=== PATIENT | male | born 1945 | race Caucasian/White ===

== ENCOUNTER 2018-07-24 10:04 | Outpatient (REF) | payer MEDICARE, SELFPAY ==
[2018-07-24 12:47] LABS: HCT 45.4 % (40.0-50.0); HGB 15.9 g/dL (13.5-17.5); Mean Corpuscular Hemoglobin 29.9 pg (27.0-33.0); Mean Corpuscular Volume 85.5 fL (80-95); Mean Platelet Volume 12.1 fL (8.0-11.0); Platelet Count 127 x1000/uL (130-400); RBC 5.31 m/cumm (4.50-6.00); RBC Distribution Width 14.1 % (11.8-14.1); White Blood Cell Count 10.43 k/cumm (4.4-10.8)
[2018-07-24 13:06] LABS: ALT 33 U/L (12-78); AST 26 U/L (15-37); Albumin 4.1 g/dL (3.4-5.0); Alkaline Phosphatase 142 U/L (46-116); Anion Gap 12.4 mmol/L (3-11); BUN 29 mg/dL (7-18); Bilirubin, Total 1.3 mg/dL (0.2-1.0); CO2 24.6 mmol/L (21.0-32.0); Calcium 8.8 mg/dL (8.5-10.1); Chloride 107 mmol/L (98-107); Cholesterol 126 mg/dL (50-200); Estimated GFR 59.35 (mL/min/1.73m2); Glucose 107 mg/dL (70-100); HDL Cholesterol 31 mg/dL (40-60); LDL CHOLESTEROL 69 mg/dL (<100); Sodium 144 mmol/L (136-145); Total Protein 6.8 g/dL (6.4-8.2); Triglyceride 196 mg/dL (30-150)
[2018-07-27 14:38] LABS: Testosterone, Free 2.01 ng/dL (3.28-12.2); Testosterone, Total 106 ng/dL (240-950)
== END 2018-07-24 10:24 ==
LOC: NCHCN 10:04
PROVIDERS: PCP Family Medicine; Visit Provider Family Medicine
DX: N52.9 Male erectile dysfunction, unspecified (principal); R53.83 Other fatigue; R60.0 Localized edema; I10 Essential (primary) hypertension; G89.29 Other chronic pain; R73.01 Impaired fasting glucose
CPT/HCPCS: 80053; 80061; 83721; 84402; 84403; 85027

== ENCOUNTER → 2018-08-15 10:54 | Outpatient (BNVA) | payer MEDICARE, SELFPAY | PROVIDERS: PCP Family Medicine; Visit Provider Orthopaedic Surgery | DX: M17.12 Unilateral primary osteoarthritis, left knee (principal) | CPT/HCPCS: 20610; 99211; 99213; J7325 ==

== ENCOUNTER → 2018-11-14 10:56 | Outpatient (BNVA) | payer OTHER, SELFPAY | PROVIDERS: PCP Family Medicine; Referring Provider Family Medicine; Visit Provider Orthopaedic Surgery | DX: M17.12 Unilateral primary osteoarthritis, left knee (principal) | CPT/HCPCS: 20610; 99211; 99213; J1040 ==

== ENCOUNTER → 2019-02-13 09:37 | Outpatient (BNVA) | payer OTHER, SELFPAY | PROVIDERS: PCP Family Medicine; Referring Provider Family Medicine; Visit Provider Orthopaedic Surgery | DX: M17.12 Unilateral primary osteoarthritis, left knee (principal); M25.511 Pain in right shoulder | CPT/HCPCS: 20610; 99211; 99212; J1040 ==

== ENCOUNTER → 2019-05-13 09:31 | Outpatient (BNVA) | payer OTHER, SELFPAY | PROVIDERS: PCP Family Medicine; Referring Provider Family Medicine; Visit Provider Orthopaedic Surgery | DX: M17.12 Unilateral primary osteoarthritis, left knee (principal) | CPT/HCPCS: 20610; 99211; 99213; J7325 ==

== ENCOUNTER 2019-08-12 10:00 | Outpatient (CLI) | payer OTHER, SELFPAY ==
--- NOTE | 2019-08-12 09:35 | DI.RAD_ITS ---
EXAM: XR KNEE LT 2V AP,LAT INDICATION: pain. COMPARISON: LEFT KNEE 3 VIEW COMPLETE from 01/30/2017 TECHNIQUE: 2D digital imaging was performed. FINDINGS: Two views were obtained. There is marked loss of the cartilaginous joint space of the medial tibiofe moral joint with subchondral sclerosis of the adjacent bones. Moderate marginal osteophyte formation noted involving the joints of the knee. No other significant bony abnormality seen. IMPRESSION: Severe DJD involving medial tibiofemoral joint.
--- NOTE | 2019-08-12 09:35 | DI.RAD_ITS ---
EXAM: XR SHOULDER LT COMPLETE 2+V INDICATION: pain. COMPARISON: No exams were available for comparison TECHNIQUE: 2D digital imaging was performed. FINDINGS: Two views were obtained. There appear to be tiny metallic fragments associated with the humeral head and region of the glenohumeral joint. Please correlate clinically. There are marked hypertrophic d egenerative changes of the acromioclavicular and glenohumeral joints. There is narrowing of the cart ilaginous joint space of the glenohumeral joint with apparent anterior subluxation of the humeral hea d. Prominent marginal osteophytes noted at the glenohumeral joint. Subchondral sclerosis of the hum eral head noted. IMPRESSION: Severe DJD of the glenohumeral joint. Hypertrophic degenerative changes of the AC joint noted as wel l.
== END 2019-08-12 10:20 ==
PROVIDERS: PCP Family Medicine; Referring Provider Family Medicine; Visit Provider Orthopaedic Surgery
DX: M25.562 Pain in left knee (principal); M17.12 Unilateral primary osteoarthritis, left knee; M25.512 Pain in left shoulder; M19.012 Primary osteoarthritis, left shoulder
CPT/HCPCS: 99201; 99213; 73030; 73560

== ENCOUNTER 2019-08-27 12:24 | Outpatient (REF) | payer OTHER, SELFPAY ==
[2019-08-27 19:27] LABS: HCT 45.7 % (40.0-50.0); HGB 16.2 g/dL (13.5-17.5); Mean Corp. HGB Concentration 35.4 g/dL (32.0-36.0); Mean Corpuscular Hemoglobin 29.9 pg (27.0-33.0); Mean Corpuscular Volume 84.3 fL (80-95); Mean Platelet Volume 11.9 fL (8.0-11.0); Platelet Count 137 x1000/uL (130-400); RBC 5.42 m/cumm (4.50-6.00); RBC Distribution Width 13.5 % (11.8-14.1); White Blood Cell Count 11.55 k/cumm (4.4-10.8)
[2019-08-27 20:25] LABS: ALT 31 U/L (16-63); AST 19 U/L (15-37); Albumin 4.2 g/dL (3.4-5.0); Alkaline Phosphatase 153 U/L (46-116); Anion Gap 10.1 mmol/L (3-11); BUN 26 mg/dL (7-18); Bilirubin, Total 1.1 mg/dL (0.2-1.0); CO2 27.9 mmol/L (21.0-32.0); CREATININE 1.24 mg/dL (0.70-1.30); Chloride 105 mmol/L (98-107); Estimated GFR 56.99 (mL/min/1.73m2); Ferritin 118 ng/mL (8-388); Folate 5.3 ng/mL (8.6-20.0); Glucose 114 mg/dL (70-100); Potassium 4.6 mmol/L (3.5-5.1); Sodium 143 mmol/L (136-145); TSH (W/Ref FT4) 2.86 uIU/mL (0.36-3.74); Total Protein 6.7 g/dL (6.4-8.2); Vitamin B12 1311 pg/mL (193-986)
== END 2019-08-27 12:44 ==
LOC: NCHCN 12:24
PROVIDERS: PCP Family Medicine; Visit Provider Family Medicine
DX: I10 Essential (primary) hypertension (principal)
CPT/HCPCS: 80053; 85027; 82607; 82728; 82746; 84443

== ENCOUNTER 2019-11-10 18:48 | Outpatient (REF) | payer OTHER, SELFPAY ==
[2019-11-10 18:53] LABS: Folate 18.3 ng/mL (8.6-20.0)
== END 2019-11-10 19:08 ==
LOC: NCHCN 18:48
PROVIDERS: PCP Family Medicine; Visit Provider Family Medicine
DX: E53.8 Deficiency of other specified B group vitamins (principal)
CPT/HCPCS: 82746

== ENCOUNTER 2020-07-29 11:31 | Outpatient (REF) | payer OTHER, SELFPAY ==
[2020-07-29 18:19] LABS: HCT 44.2 % (40.0-50.0); HGB 15.4 g/dL (13.5-17.5); MCH 29.8 pg (27.0-33.0); MCHC 34.8 % (32.0-36.0); MCV 85.7 fL (80-95); MPV 11.9 fL (8.0-11.0); Platelet Count 163 10^3/uL (130-400); RBC 5.16 10^6/uL (4.36-5.78); RDW 13.6 % (11.8-14.1); RDW-SD 42.6 fL; WBC 9.58 10^3/uL (4.4-10.8)
[2020-07-29 19:12] LABS: Hemoglobin A1C 5.7 % (<5.7)
[2020-07-29 19:20] LABS: ALT 33 U/L (16-63); AST 21 U/L (15-37); Albumin 4.3 g/dL (3.4-5.0); Alkaline Phosphatase 134 U/L (46-116); Anion Gap 8.9 mmol/L (3-11); BUN 21 mg/dL (7-18); Bilirubin, Total 1.6 mg/dL (0.2-1.0); CO2 26.1 mmol/L (21.0-32.0); CREATININE 0.98 mg/dL (0.70-1.30); Calcium 8.8 mg/dL (8.5-10.1); Calculated LDL 52 mg/dL (<100); Chloride 107 mmol/L (98-107); Cholesterol 113 mg/dL (<200); Folate 18.8 ng/mL (8.6-20.0); Glucose 118 mg/dL (74-106); HDL Cholesterol 30 mg/dL (40-60); Potassium 4.1 mmol/L (3.5-5.1); Sodium 142 mmol/L (136-145); Total Protein 6.7 g/dL (6.4-8.2); Triglyceride 155 mg/dL (<150)
== END 2020-07-29 11:51 ==
LOC: NCHCN 11:31
PROVIDERS: PCP Family Medicine; Visit Provider Family Medicine
DX: I10 Essential (primary) hypertension (principal); R73.03 Prediabetes; F17.200 Nicotine dependence, unspecified, uncomplicated; E53.8 Deficiency of other specified B group vitamins; M25.551 Pain in right hip; M25.552 Pain in left hip
CPT/HCPCS: 80053; 80061; 85027; 82746; 83036

== ENCOUNTER 2021-01-13 10:32 | Outpatient (REF) | payer OTHER, SELFPAY ==
[2021-01-13 16:20] LABS: ALT 35 U/L (16-63); AST 21 U/L (15-37); Albumin 4.1 g/dL (3.4-5.0); Alkaline Phosphatase 121 U/L (46-116); Anion Gap 9.7 mmol/L (3-11); BUN 29 mg/dL (7-18); Bilirubin, Total 1.6 mg/dL (0.2-1.0); CO2 24.3 mmol/L (21.0-32.0); Calcium 8.9 mg/dL (8.5-10.1); Chloride 108 mmol/L (98-107); Ferritin 104 ng/mL (26-388); Glucose 130 mg/dL (74-106); Sodium 142 mmol/L (136-145); Total Protein 6.6 g/dL (6.4-8.2)
[2021-01-13 21:50] LABS: PSA, Screening 7.6 ng/mL (0.0-6.5)
== END 2021-01-13 10:33 | disposition home or self-care (01) ==
LOC: NCHCN 10:32
PROVIDERS: PCP Family Medicine; Visit Provider Family Medicine
DX: R10.30 Lower abdominal pain, unspecified (principal); Z12.5 Encounter for screening for malignant neoplasm of prostate; R79.89 Other specified abnormal findings of blood chemistry
CPT/HCPCS: 80053; 84153; 85027; 82728

== ENCOUNTER 2021-09-30 10:27 | Outpatient (REF) | payer OTHER, SELFPAY ==
[2021-09-30 14:52] LABS: Anion Gap 10.5 mmol/L (3-11); BUN 32 mg/dL (7-18); CO2 24.5 mmol/L (21.0-32.0); CREATININE 1.2 mg/dL (0.70-1.30); Calcium 8.9 mg/dL (8.5-10.1); Chloride 107 mmol/L (98-107); Estimated GFR 58.86 (mL/min/1.73m2); Glucose 150 mg/dL (74-106); Sodium 142 mmol/L (136-145)
[2021-09-30 15:12] LABS: Hemoglobin A1C 6.1 % (<5.7)
== END 2021-09-30 10:28 | disposition home or self-care (01) ==
LOC: NCHCN 10:27
PROVIDERS: PCP Family Medicine; Visit Provider Family Medicine
DX: R73.03 Prediabetes (principal); I10 Essential (primary) hypertension; R06.09 Other forms of dyspnea
CPT/HCPCS: 80048; 83036

== ENCOUNTER 2022-08-24 16:28 | Outpatient (REF) | payer OTHER, SELFPAY ==
[2022-08-24 15:09] LABS: Anion Gap 6.8 mmol/L (3-11); BUN 17 mg/dL (7-18); CO2 26.2 mmol/L (21.0-32.0); CREATININE 1.4 mg/dL (0.70-1.30); Chloride 105 mmol/L (98-107); Estimated GFR 51.77 (mL/min/1.73m2); Glucose 133 mg/dL (74-106); Sodium 138 mmol/L (136-145)
[2022-08-24 15:13] LABS: Hemoglobin A1C 6.2 % (<5.7)
== END 2022-08-24 16:29 | disposition home or self-care (01) ==
LOC: NCHCN 16:28
PROVIDERS: PCP Family Medicine; Visit Provider Family Medicine
DX: R73.03 Prediabetes (principal); I10 Essential (primary) hypertension
CPT/HCPCS: 80048; 83036

== ENCOUNTER 2023-02-16 18:08 | Outpatient (REF) | payer MEDICARE, SELFPAY ==
[2023-02-16 18:16] LABS: Hemoglobin A1C 6.3 % (<5.7)
[2023-02-16 18:19] LABS: ALT 28 U/L (16-63); AST 18 U/L (15-37); Albumin 3.9 g/dL (3.4-5.0); Alkaline Phosphatase 127 U/L (46-116); Anion Gap 9.6 mmol/L (3-11); BUN 19 mg/dL (7-18); Bilirubin, Total 1.1 mg/dL (0.2-1.0); CO2 26.4 mmol/L (21.0-32.0); CREATININE 1.2 mg/dL (0.70-1.30); Calcium 8.9 mg/dL (8.5-10.1); Chloride 105 mmol/L (98-107); Glucose 179 mg/dL (74-106); Potassium 4.2 mmol/L (3.5-5.1); Sodium 141 mmol/L (136-145); Total Protein 7.2 g/dL (6.4-8.2)
== END 2023-02-16 18:09 | disposition home or self-care (01) ==
LOC: NCHCN 18:08
PROVIDERS: PCP Family Medicine; Visit Provider Family Medicine
DX: I10 Essential (primary) hypertension (principal); R73.03 Prediabetes
CPT/HCPCS: 80053; 83036

== ENCOUNTER 2023-09-12 15:51 | Outpatient (REF) | payer MEDICARE, SELFPAY ==
[2023-09-12 16:18] LABS: HCT 45.5 % (40.0-50.0); HGB 15.4 g/dL (13.5-17.5); MCH 29.3 pg (27.0-33.0); MCHC 33.8 % (32.0-36.0); MCV 87 fL (80-95); MPV 11.4 fL (8.0-11.0); Platelet Count 194 10^3/uL (130-400); RBC 5.26 10^6/uL (4.36-5.78); RDW 13.6 % (11.8-14.1); RDW-SD 43.2 fL
[2023-09-12 16:25] LABS: Anion Gap 9.5 mmol/L (3-11); BUN 17 mg/dL (7-18); CO2 30.5 mmol/L (21.0-32.0); CREATININE 1.2 mg/dL (0.70-1.30); Calcium 9.4 mg/dL (8.5-10.1); Chloride 103 mmol/L (98-107); Glucose 110 mg/dL (74-106); Potassium 3.4 mmol/L (3.5-5.1); Sodium 143 mmol/L (136-145)
== END 2023-09-12 15:52 | disposition home or self-care (01) ==
LOC: NCHCN 15:51
PROVIDERS: PCP Family Medicine; Visit Provider Family Medicine
DX: R19.5 Other fecal abnormalities (principal)
CPT/HCPCS: 80048; 85027

== ENCOUNTER 2024-09-24 17:55 | Outpatient (REF) | payer MEDICARE, SELFPAY ==
--- OUTSIDE RECORDS SUMMARY | 2024-09-24 18:50 | XMS_ITS | Continuity of Care Document ---
Author Organization [facility] Address [address] [place] [address] Care Team Providers Care Gender Studies Professor Name Role Phone Kylah Ramsay Primary Care Physician Encounter NCTY_ME Date(s): 10/02/23 - 10/02/23 [facility] [address] [place] [address] Discharge Disposition: Home or Self Care Attending Physician: Kylah Ramsay MD Admitting Physician: Kylah Ramsay MD Allergies, Adverse Reactions, Alerts No Known Medication Allergies Substance Reaction Severity Status hydroCHLOROthiazide Unknown Active Assessment and Plan Diagnostic Tests Pending * Clostridium Difficile 10/02/23 * Lactoferrin, Fecal by [facility] 10/02/23 * Fecal Bacterial Pathogens by PCR [facility] 10/02/23 * Generic Orderable [facility] 10/02/23 Medications acetaminophen-codeine 300 mg-30 mg oral tablet 56 EA, TAKE ONE TABLET BY MOUTH TWICE A DAY MAX DOSE OF 2 TABLETS DAILY, 0 Refill(s) Start Date: 03/12/23 Status: Ordered amLODIPine 2.5 mg oral tablet 90 tab, 0 Refill(s) Start Date: 03/12/23 Status: Ordered atenolol 100 mg oral tablet 90 tab, 0 Refill(s) Start Date: 03/12/23 Status: Ordered atenolol 50 mg oral tablet 90 tab, 0 Refill(s) Start Date: 03/12/23 Status: Ordered atorvastatin 40 mg oral tablet 90 tab, 0 Refill(s) Start Date: 03/12/23 Status: Ordered diphenoxylate-atropine 2.5 mg-0.025 mg oral tablet 80 tab, 0 Refill(s) Start Date: 03/12/23 Status: Ordered furosemide 40 mg oral tablet 90 tab, 0 Refill(s) Start Date: 03/12/23 Status: Ordered hydrOXYzine hydrochloride 25 mg oral tablet 90 tab, 0 Refill(s) Start Date: 03/12/23 Status: Ordered lisinopril 40 mg oral tablet 90 tab, 0 Refill(s) Start Date: 03/12/23 Status: Ordered omeprazole 40 mg oral delayed release capsule 90 cap, 0 Refill(s) Start Date: 03/12/23 Status: Ordered oxyCODONE 5 mg oral tablet 56 EA, TAKE 1 TO 2 BY MOUTH EVERY NIGHT MAX DOSE OF 2 TABLETS, 0 Refill(s) Start Date: 03/12/23 Status: Ordered Problem List Condition Confirmation Course Effective Dates Status H ealth Status Informant Chronic pain Confirmed 01/24/21 Active Colitis Confirmed 01/24/21 Active Diarrhea Confirmed 01/24/21 Active Dyspnea on exertion Confirmed 01/24/21 Active Edema of lower leg Confirmed 01/24/21 Active Erectile dysfunction Confirmed 01/24/21 Active Folic acid deficiency Confirmed 01/24/21 Active Hemangioma of liver Confirmed 01/24/21 Active Hip pain Confirmed 01/24/21 Active Hyperlipidemia Confirmed 01/24/21 Active Hypertensive disorder Confirmed 01/24/21 Active Low back pain Confirmed 01/24/21 Active Lower abdominal pain Confirmed 01/24/21 Active Mass of body structure Confirmed 01/24/21 Active Metabolic syndrome X Confirmed 01/24/21 Active Peptic ulcer Confirmed 01/24/21 Active Prediabetes Confirmed 01/24/21 Active Psoriasis Confirmed 01/24/21 Active Raised prostate specific antigen Confirmed 01/24/21 Active Shoulder pain Confirmed 01/24/21 Active Smoker Confirmed 01/24/21 Active Results Laboratory List Name Date Giardia/Crypto Ag 10/02/23 Most recent to oldest [Reference Range]: 1 Giardia Ag sent to [facility] *NA* (10/02/23 12:24 PM) Cryptospor Ag sent to [facility] *NA* (10/02/23 12:24 PM) Social History Social History Type Response Sex Male Patient Care team information Care Team Personnel Name: Kylah Ramsay MD Position: No Access Member Role: Primary Care Physician Address: Address: [address] [address]
--- OUTSIDE RECORDS SUMMARY | 2024-09-24 18:50 | XMS_ITS | Encounter Summary ---
Author Organization [facility] Address [address] [place] [address] Care Team Providers Care Abrasive Worker Name Role Phone Kylah Ramsay MD Primary Care Provider [phone] Encounter Details Date Type Department Care Team (Late st Contact Info) Description 10/02/2023 Lab Requisition [facility] Pathology & Laboratory Medicine - [facility] [address], [place] [id number] Outr Resulting Lab, Provider Social History Tobacco Use Types Packs/Day Years Used Date Smoking Tobacco: Never Assessed Sex and Gender Information Value Date Recorded Sex Assigned at Not on file Legal Sex Male 18:02 EST Gender Identity Not on file Sexual Orientation Not on file documented as of this encounter Plan of Treatment Not on file documented as of this encounter Procedures Procedure Name Priority Date/Time Associated Diagnosis Comments FECAL BACTERIAL PATHOGENS BY PCR Routine 10/02/2023 12:24 EST documented in this encounter Results * FECAL BACTERIAL PATHOGENS BY PCR (10/02/2023 12:24 EST) Salmonella PCR Negative Negative 10/03/2023 12:14 EST [facility] Shigella/Enteroin vasive E. coli Negative Negative 10/03/2023 12:14 EST [facility] HN LAB CAMPYLOBACTER PCR Negative Negative 10/03/2023 12:14 EST [facility] Shiga Toxin PCR Negative Negative 12:14 EST [facility] Feces SPECIMEN FROM RECTUM / Unknown 10/02/2023 12:24 EST 10/02/2023 22:58 EST us Provider Outr Resulting Lab MICROBIOLOGY - GENER AL ORDERABLES Final Result [facility] [address] [place] [address] documented in this encounter Visit Diagnoses Not on filedocumented in this encounter Care Teams Abrasive Worker Relationship Specialty Start Date End Date Kylah Ramsay MD [address] [place] [phone] PCP - General 06/06/11 documented as of this encounter
--- OUTSIDE RECORDS SUMMARY | 2024-09-24 18:50 | XMS_ITS | Clinical Summary ---
Author Organization [facility] Address [facility] [place] [address] Care Team Providers Care Replenishment Analyst Name Role Phone Kylah Ramsay MD Primary Care Provider [phone] Allergies No known active allergies Medications Medication Sig Dispensed Refills Start Date End Date Status amoxicillin (AMOXIL) 500 mg Capsule Take 500 mg by mouth 3 times daily. Active diaZEPam (VALIUM) 5 mg Tablet Take 5 mg by mouth daily. Active OXYcodone-Aspirin 4.8355-325 mg Tablet Take 1 tablet by mouth nightly. Active LORazepam (ATIVAN) 1 mg Tablet Take 1 mg by mouth as needed for Anxiety. Active acetaminophen-codeine (TYLENOL-CODEINE #3) 300-30 mg Tablet Take 1 tablet by mouth every 6 hours as needed for Pain. Active diphenoxylate-atropine (LOMOTIL) 2.5-0.025 mg Tablet Take 1 tablet by mouth 4 times daily as needed for Diarrhea. Active hydrOXYzine (ATARAX) 25 mg Tablet Take 25 mg by mouth daily. Active omeprazole (PRILOSEC) 20 mg Capsule, Delayed Release(E.C.) Take 20 mg by mouth daily. Active atenolol (TENORMIN) 100 mg Tablet Take 100 mg by mouth daily. Active lisinopril (PRINIVIL;ZESTRIL) 40 mg Tablet Take 40 mg by mouth daily. Active atorvastatin (LIPITOR) 10 mg Tablet Take 10 mg by mouth daily. Active busPIRone (BUSPAR) 15 mg Tablet Take 15 mg by mouth 2 times daily. Active GLUC SCHWAB/CHONDRO SCHWAB A/VIT C/MN (GLUCOSAMINE 1500 COMPLEX ORAL) Take 1,500 mg by mouth daily. Active fish oil-omega-3 fatty acids 1,000 mg Capsule Take 1 g by mouth daily. Active cyanocobalamin 500 mcg Tablet Take 500 mcg by mouth daily. Active Potassium Gluconate 595 mg (99 mg) Tablet Take by mouth. Active Ascorbic Acid 500 mg Tablet, Chewable Take by mouth. Acti ve astaxanthin 4 mg Capsule Take by mouth daily. Active Arginine, L-Arginine, 500 mg Capsule Take by mouth daily. Active LS-2-TVT-EPA-Fish Oil-Vit D3 (FISH OIL-VIT D3) 300-1,000-1,000 mg-mg-unit Capsule Take 2,000 Units by mouth. Active Inositol 500 mg Tablet Take by mouth. Active pyridoxine (B-6) 100 mg Tablet Take 100 mg by mouth daily. Active Zinc Acetate, Oral, 50 mg (zinc) Capsule Take by mouth. Act mila Active Problems Problem Noted Date Diagnosed Date Retinal detachment 05/14/2015 Family History Medical History Relation Comments Diabetes Neg Hx Glaucoma Neg Hx Macular Degeneration Neg Hx Social History Tobacco Use Types Packs/Day Years Used Date Smoking Tobacco: Every Day Alcohol Use Standard Drinks/Week Comments No 0 (1 standard drink = 0.6 oz pur e alcohol) Sex and Gender Information Value Date Recorded Sex Assigned at Not on file Gender Identity Not on file Sexual Orientation Not on file Plan of Treatment Health Maintenance Due Date Last Done Comments Hepatitis C Screening 1963 Tetanus/Diphtheria/Pertussis Vaccines (1 - Tdap) 02/15 Zoster vaccine (1 of 2) 1995 Advance Directive 02/16/2000 Pneumoccocal Vaccine: 65+ (1 of 1 - PCV) 2010 RSV Vaccine (1 - 1-dose 75+ series) 02/16/2020 Covid-19 Vaccine (1 - season) 2024 Influenza (Flu) vaccine (1 o f 1 - Influenza standard series) 06/29/2024 Care Teams Replenishment Analyst Relationship Specialty Start Date End Date Kylah Ramsay MD [facility] FAYE RAMIREZ [address] [place], [place] [id number] PCP - General 09/20/10
--- OUTSIDE RECORDS SUMMARY | 2024-09-24 18:50 | XMS_ITS | Encounter Summary ---
Author Organization [facility] Address [address] [place] [address] Care Team Providers Care Glue Drier Operator Name Role Phone Kylah Ramsay MD Primary Care Provider [phone] Encounter Details Date Type Department Care Team (Late st Contact Info) Description 10/02/2023 Lab Requisition [facility] Pathology & Laboratory Medicine - [facility] [address] [place] [address] Outr Resulting Lab, Provider Social History Tobacco [...] Procedure Name Priority Date/Time Associated Diagnosis Comments GIARDIA AND CRYPTOSPORIDIUM ANTIGENS Routine 10/02/2023 12:24 EST documented in this encounter Results * GIARDIA AND CRYPTOSPORIDIUM ANTIGENS (10/02/2023 12:24 EST) Giardia and Cryptosporidium Cryptosporidium Antigen Neg and Giardia Antigen Neg Cryptosporidium Antigen Neg and Giardia Antigen Neg 14:40 EST [facility] Feces SPECIMEN FROM RECTUM / Unknown 10/02/2023 12:24 EST 10/02/2023 22:58 EST us Provider Outr Resulting Lab MICROBIOLOGY - GENER AL ORDERABLES Final Result [facility] [address] [place] [address] documented in this encounter Visit Diagnoses Not on filedocumented in this encounter Care Teams Glue Drier Operator Relationship Specialty Start Date End Date Kylah Ramsay MD [address] [place] [phone] PCP - General 06/06/11 documented as of this encounter
--- OUTSIDE RECORDS SUMMARY | 2024-09-24 18:50 | XMS_ITS | Clinical Summary ---
Author Organization [facility] Address [address] [place] [address] Care Team Providers Care Manager Film Name Role Phone Kylah Ramsay MD Primary Care Provider [phone] Social History Tobacco Use Types Packs/Day Years Used Date Smoking Tobacco: Never Assessed Sex and Gender Information Value Date Recorded Sex Assigned at Not on file Legal Sex Male 18:02 EST Gender Identity Not on file Sexual Orientation Not on file Plan of Treatment Health Maintenance Due Date Last Done Comments Hepatitis C Screen 1945 Fall Risk Screening 2010 RSV Immunization ( o r 60+ Years) (1 - 1-dose 75+ series) 02/16/2020 COVID-19 Vaccine ( season) 2024 Insurance [employer] MEDICARE Care Teams Manager Film Relationship Specialty Start Date End Date Kylah Ramsay MD [address] [place] [phone] PCP - General 06/06/11
--- OUTSIDE RECORDS SUMMARY | 2024-09-24 18:50 | XMS_ITS | Encounter Summary ---
Author Organization [facility] Address [address] [place] [address] Care Team Providers Care Field Technician Name Role Phone Kylah Ramsay MD Primary Care Provider [phone] Encounter Details Date Type Department Care Team (Late st Contact Info) Description 02/23/2021 Lab Requisition [facility] Pathology & Laboratory Medicine - [facility] [address] [place] [address] Rinku Martines MD [address] [place] [phone] Encounter for other general examination Social History Tobacco Use Types Packs/Day Years [...] Procedure Name Priority Date/Time Associated Diagnosis Comments SURGICAL PATHOLOGY Today 02/23/2021 13 :35 EDT documented in this encounter Results * SURGICAL PATHOLOGY (02/23/2021 13:35 EDT) Final Diagnosis A. DUODENUM, BIOPSY: - Erosive peptic duodenitis. See comment B. STOMACH, ANTRUM, BIOPSY: - Pyloric channel type mucosa showing reactive changes C. STOMACH, BODY, BIOPSY: - Gastric oxyntic mucosa showing proton pump inhibitor effects D. STOMACH, POLYP, BIOPSY: - Polypoid gastric oxyntic mucosa showing proton pump inhibitor effects E. ILEUM, TERMINAL ILEUM, BIOPSY: - Benign small bowel mucosa showing no pathologic abnormality F. COLON, RANDOM, BIOPSY: - Benign colonic mucosa showing no specific pathologic changes. See comment G. COLON, TRANSVERSE, POLYP, BIOPSY: - Tubular adenoma. See comment 03/03/2021 15:16 [facility] Diagnosis Comment Deeper sections have been examined on blocks A, F, and G. 03/03/2021 15:16 [facility] Attestation By the signature below, the attending physician certifies that they have 1) personally conducted a gross and/or microscopic examination of the described specimen(s), and/or personally interpreted the results of laboratory testing of the described specimen(s), and 2) personally rendered or confirmed the above diagnosis. 03/03/2021 15:16 [facility] at 1516 Clinical History Diarrhea with mixed constipation; Type 1 hiatal hernia, duodenitis, gastric polyp 03/03/2021 15:16 [facility] Gross Description A. Received in formalin labelled with proper patient identification (initials T, Z) and duodenum Bx are 3 fragments of bowen tissue; each measuring 0.3 x 0.3 x 0.2 cm. The specimens are submitted in A1. B. Received in formalin labelled with proper patient identification (initials T, Z) and antrum Bx is a single fragment of bowen tissue (0.3 x 0.3 x 0.3 cm). The specimen is submitted in B1. C. Received in formalin labelled with proper patient identification (initials T, Z) and gastric body Bx is a single fragment of bowen tissue (0.5 x 0.2 x 0.2 cm). The specimen is submitted in C1. D. Received in formalin labelled with proper patient identification (initials T, Z) and gastric polyp Bx are 2 fragments of bowen tissue; each measuring 0.2 x 0.2 x 0.2 cm. The specimens are submitted in D1. E. Received in formalin labelled with proper patient identification (initials T, Z) and terminal ileum Bx is a single fragment of bowen tissue (0.2 x 0.2 x 0.1 cm). The specimen is submitted in E1. F. Received in formalin labelled with proper patient identification (initials T, Z) and random colon Bx are multiple fragments of bowen tissue measuring 0.2 cm and 0.3 cm in greatest dimension. The specimens are submitted in F1. G. Received in formalin labelled with proper patient identification (initials T, Z) and transverse colon polyp is a single fragment of bowen tissue (0.5 x 0.3 x 0.2 cm). The specimen is submitted in G1. ROCIO CLAUDIO(ASCP) 02/24/2021 7:55 03/03/2021 15:16 EDT [facility] Performing Lab [facility] 03/03/2021 15:16 EDT [facility] Scanned Images 03/03/2021 15:16 EDT [facility] Tissue ENTIRE TRANSVERSE COLON / Unknown 02/23/2021 13:35 EDT 02/23/2021 22:45 EDT Tissue specimen (specimen) STOMACH STRUCTURE / Unknown 02/23/2021 13:35 EDT 02/23/2021 22:45 EDT Tissue specimen (specimen) STOMACH STRUCTURE / Unknown 02/23/2021 13:35 EDT 02/23/2021 22:45 EDT Tissue specimen (specimen) SPECIMEN FROM STOMACH OBTAINED BY TOTAL GASTRECTOMY / Unknown 02/23/2021 13:35 EDT 02/23/2021 22:45 EDT Tissue specimen (specimen) STRUCTURE OF SMALL INTESTINE / Unknown 02/23/2021 13:35 EDT 02/23/2021 22:45 EDT Tissue specimen (specimen) COLON STRUCTURE / Unknown 02/23/2021 13:35 EDT 02/23/2021 22:45 EDT Tissue specimen (specimen) TRANSVERSE COLON STRUCTURE / Unknown 02/23/2021 13:35 EDT 02/23/2021 22:45 EDT us Rinku Martines MD PATHOLOGY ORDERABLES F inal Result [facility] [address] [place] [address] documented in this encounter Visit Diagnoses Diagnosis Encounter for other general examination documented in this encounter Care Teams Field Technician Relationship Specialty Start Date End Date Kylah Ramsay MD [address] [place] [phone] PCP - General 06/06/11 documented as of this encounter
--- OUTSIDE RECORDS SUMMARY | 2024-09-24 18:50 | XMS_ITS | Encounter Summary ---
Author Organization [facility] Address [facility] [place] [address] Care Team Providers Care Laboratory Coordinator Name Role Phone Kylah Ramsay MD Primary Care Provider Reason for Visit * Reason Comments Eye Problem sent by Dr. Madrid for retinal eval-OS Encounter Details Date Type Department Care Team (Late st Contact Info) Description 05/14/2015 7:45 AM EDT Office [place] [phone] Rickie Vasques MD [facility] [place] [address] Retinal detachment, left Discharge Disposition: Home Social History Tobacco Use Types Packs/Day Years Used Date Smoking Tobacco: Every Day Alcohol Use Standard Drinks/Week Comments No 0 (1 standard drink = 0.6 oz pur e alcohol) Sex and Gender Information Value Date Recorded Sex Assigned at Not on file Gender Identity Not on file Sexual Orientation Not on file documented as of this encounter Progress Notes * Rickie Vasques MD - 05/14/2015 8:55 AM EDT Subclinical retinal detachment to 2-3 o'clock left eye. Localized retinal break was subretinal fluid and scant pigmentation. Laser today. 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 In summary, he is symptomatic with flashes and floaters in the left eye. A definite retinal break with subretinal fluid andscant pigmentation is seen at 2:30 o'clock. Given the symptoms as well as possible upcoming orbitalsurgery, we reviewed the risks and benefits. Laser treatment was recommended and was performed without difficulty. I've asked the patient to see you for continuity of care but to return immediately for any visual field loss if flashes or floaters or other changes documented in this encounter Plan of Treatment Not on file documented as of this encounter Visit Diagnoses Diagnosis Retinal detachment, left Unspecified retinal detachment documented in this encounter Care Teams Laboratory Coordinator Relationship Specialty Start Date End Date Kylah Ramsay MD [facility] [address] [place] [address] PCP - General 09/20/10 documented as of this encounter
--- OUTSIDE RECORDS SUMMARY | 2024-09-24 18:50 | XMS_ITS | Referral Summary ---
Author Organization [facility] Address [address] [place] [address] Care Team Providers Care [facility] Shift Lead Name Role Phone Kylah Ramsay MD Primary Care Provider Social History Tobacco Use Types Packs/Day Years Used Date Smoking Tobacco: Never Assessed Sex and Gender Information Value Date Recorded Sex Assigned at Not on file Legal Sex Male 18:02 EST Gender Identity Not on file Sexual Orientation Not on file Plan of Treatment Not on file Insurance [employer] MEDICARE Care Teams [facility] Shift Lead Relationship Specialty Start Date End Date Kylah Ramsay MD [address] [place] [phone] PCP - General 06/06/11
--- OUTSIDE RECORDS SUMMARY | 2024-09-24 18:50 | XMS_ITS | Encounter Summary ---
Author Organization [facility] Address [facility] [place] [address] Care Team Providers Care Regional Truck Driver Name Role Phone Kylah Ramsay MD Primary Care Provider [phone] Reason for Visit * Reason Onset Date Comments Eye Problem 05/17/2015 Gritty and burni ng feeling s/p laser treatment by Dr. Vasques on Sunday05/14/15 Encounter Details Date Type Department Care Team (Late st Contact Info) Description 05/17/2015 Telephone [place] [phone] Rickie Vasques MD [facility] [place] [address] Eye Problem (Gritty and burning feeling s/p laser treatment by Dr. Vasques on Sunday05/14/15) Social History Tobacco Use Types Packs/Day Years Used Date Smoking Tobacco: Every Day Alcohol Use Standard Drinks/Week Comments No 0 (1 standard drink = 0.6 oz pur e alcohol) Sex and Gender Information Value Date Recorded Sex Assigned at Not on file Gender Identity Not on file Sexual Orientation Not on file documented as of this encounter Miscellaneous Notes * Telephone Encounter - Anna Brown COT - 05/17/2015 9:38 AM EDT Patient already spoke to someone. All set. * Telephone Encounter - Anna Brown COT - 05/17/2015 8:54 AM EDT S/p Focal OS for retinal hole 05/14/15 documented in this encounter Plan of Treatment Not on file documented as of this encounter Visit Diagnoses Not on filedocumented in this encounter Care Teams Regional Truck Driver Relationship Specialty Start Date End Date Kylah Ramsay MD [facility] FAYE RAMIREZ [facility] [address] [place] [address] PCP - General 09/20/10 documented as of this encounter
--- OUTSIDE RECORDS SUMMARY | 2024-09-24 18:50 | XMS_ITS | Encounter Summary ---
Author Organization Formerly [facility], [facility] Address [facility] [place] [address] Care Team Providers Care Securities Clerk Name Role Phone Kylah Ramsay MD Primary Care Provider [phone] Reason for Visit * Reason Comments Procedure decision made in cli tam[place] today for focal laser OS for retinal hole Encounter Details Date Type Department Care Team (Late st Contact Info) Description 05/14/2015 10:45 AM EDT Procedure [place] [address] Rickie Vasques MD [facility] [address] [place] [address] Retinal hole of left eye Discharge Disposition: Home Social History Tobacco Use [...] Notes * Rickie Vasques MD - 05/14/2015 9:59 AM EDT Small subclinical detachment at 2 to 3:00 very well treated with laser completely surrounding the lesion and extending to the ora rosanna. No other lesions or high-risk pathology after careful repeatclinical examination at the time of laser Return to physicians at [place] Return immediately for any flashes floaters or visual field loss. Recommend dilated examination with indentation and indirect ophthalmoscopy with in 6 months for theright eye. Good view today but somewhat challenging in terms of fixation documented in this encounter Plan of Treatment Not on file documented as of this encounter Procedures Procedure Name Priority Date/Time Associated Diagnosis Comments DESTRUCTION LOC LESION RETINA-PHOTOCOAG:SUB SESSION - OS - LEFT EYE Routine 05/14/2015 9:59 AM EDT Retinal hole of left eye documented in this encounter Results * Laser Focal Retina Subsqu. Session - OS - Left Eye (05/14/2015 9:59 AM EDT) Anatomical Region Laterality Modality Other Narrative 05/14/2015 9:59 AM EDT Pre-Op Patient understands the risks and benefits of the treatment as outlined on the consent. Anesthesia Topical anesthesia was used. Laser Information The type of laser was argon. Color was green. The duration in seconds was 200.0. Laser power was 100.0. Total spots was 220. The spot size was 200 microns. Post-op The patient tolerated the procedure well. There were no complications. The patient received written and verbal post procedure care education. Notes Retinal tear treated to the ora rosanna and completely surrounded Rickie Vasques MD OPHTHALMOLOGY S ERVICES ORDERABLES documented in this encounter Visit Diagnoses Diagnosis Retinal hole of left eye documented in this encounter Care Teams Securities Clerk Relationship Specialty Start Date End Date Kylah Ramsay MD [address] [place] [address] PCP - General 09/20/10 documented as of this encounter
--- OUTSIDE RECORDS SUMMARY | 2024-09-24 18:51 | XMS_ITS | Encounter Summary ---
Author Organization [facility] Address [address] [place] [address] Care Team Providers Care Emergency Medicine Physician Name Role Phone Kylah Ramsay MD Primary Care Provider [phone] Encounter Details Date Type Department Care Team (Late st Contact Info) Description 01/13/2021 Lab Requisition [facility] Pathology & Laboratory Medicine - [facility] [address] [place], [place] [id number] Outr Resulting Lab, Provider Social History Tobacco [...] Procedure Name Priority Date/Time Associated Diagnosis Comments PSA TOTAL, DIAGNOSTIC Routine 01/13/2021 10:17 EDT documented in this encounter Results * (ABNORMAL) PSA TOTAL, DIAGNOSTIC (01/13/2021 10:17 EDT) PSA 7.6(H) 0.0 - 6.5 ng/mL 01/13/2021 21:45 EDT [facility] Blood VENOUS BLOOD / Unknown 01/13/2021 10:17 EDT 01/13/2021 20:37 EDT Narrative [facility] - 01/13/2021 21:45 EDT NOTE: Serum PSA concentration should not be interpreted as absolute evidence for the presence or absence of malignant disease. Assayed on Siemens ADVIA GOPOP.TVaur XPT using chemiluminescent technology.??Values obtained by using different assay methods cannot be used interchangeably. us Provider Outr Resulting Lab CHEMISTRY & BLOOD GA S ORDERABLES Final Result [facility] [address] [place] [address] documented in this encounter Visit Diagnoses Not on filedocumented in this encounter Care Teams Emergency Medicine Physician Relationship Specialty Start Date End Date Kylah Ramsay MD [address] [place] [phone] PCP - General 06/06/11 documented as of this encounter
--- OUTSIDE RECORDS SUMMARY | 2024-09-24 18:51 | XMS_ITS | Encounter Summary ---
Author Organization [facility] Address [address] [place] [address] Care Team Providers Care Radio Announcer Name Role Phone Kylah Ramsay MD Primary Care Provider [phone] Encounter Details Date Type Department Care Team (Late st Contact Info) Description 02/18/2021 Lab Requisition [facility] Pathology & Laboratory Medicine - [facility] [address] [place] [address] Outr Resulting Lab, Provider Social History Tobacco [...] Procedure Name Priority Date/Time Associated Diagnosis Comments ZZCOVID-19 TEST [facility] PCR Today 02/18/2021 12:19 EDT COVID-19 TESTING Routine 02/18/2021 12:1 9 EDT documented in this encounter Results * COVID-[address] [facility] PCR (02/18/2021 12:19 EDT) Swab ENTIRE NASOPHARYNX / Unknown 02/18/2021 12:19 EDT 02/18/2021 21:29 EDT us Provider Outr Resulting Lab MICROBIOLOGY - GENER AL ORDERABLES Final Result [facility] [address] [place] [address] * COVID-19 TESTING (02/18/2021 12:19 EDT) COVID-19 rt-PCR Result Negative Negative 02/19/2021 12:34 EDT [facility] Comment: This test has not been FDA cleared or approved. This test has been authorized by FDA under an EUA for use by authorized laboratories. This test has been authorized only for detection of nucleic acid from 2019-nCoV, not for any other viruses or pathogens. This test is only authorized for the duration of the declaration that circumstances exist justifying the authorization of emergency use of in vitro diagnostic tests for detection and/or diagnosis of 2019-nCoV under section 564(b)(1) of Act, 21 U.S.C ?? 360bbb-3(b) (1), unless the authorization is terminated or revoked sooner. Negative results do not preclude 2019-nCoV infection and should not be used as the sole basis for treatment or other patient management decisions. Negative results must be combined with clinical observations, patient history, and epidemiological information. Performed on the Surefire Social instrument Performing Lab [place] [facility] 02/19/2021 12:34 EDT [facility] Swab 02/18/2021 12:1 9 EDT 02/18/2021 21:29 EDT us Provider Outr Resulting Lab MICROBIOLOGY - GENER AL ORDERABLES Final Result [facility] [address] [place] [address] documented in this encounter Visit Diagnoses Not on filedocumented in this encounter Care Teams Radio Announcer Relationship Specialty Start Date End Date Kylah Ramsay MD [address] [place] [phone] PCP - General 06/06/11 documented as of this encounter
--- OUTSIDE RECORDS SUMMARY | 2024-09-24 18:51 | XMS_ITS | Encounter Summary ---
Author Organization [facility] Address [address] [place] [address] Care Team Providers Care Drying Unit Felting Machine Operator Name Role Phone Unknown, Provider Primary Care Provider Unapaz ilable Encounter Details Date Type Department Care Team (Late st Contact Info) Description 06/01/2011 Results Only [facility] [phone] Bryce Quinones MD [address] [facility] [address] [place] [phone] Social History Tobacco Use Types Packs/Day Years [...] Priority Date/Time Associated Diagnosis Comments SURGICAL PATHOLOGY Routine 06/01/2011 0:00 EDT documented in this encounter Results * SURGICAL PATHOLOGY (06/01/2011 0:00 EDT) Pathology Report: SURGICAL PATHOLOGY REPORT ? Reports generated via electronic interface contain original data; ? however they are lacking the format of the original report. ? Caution should be taken when reading/interpreti ng unformatted reports. ? Name: ? FIDEL, ZEBBULUN J ? Accession #: ? [id number] ? : ? 1945 (Age: 66) ??M ? Collect Date: ? 06/01/2011 ? Location: ? [facility] ? Receive Date: ? 06/02/2011 ? Provider: BRYCE NISBET MD ? Copy to: BRITTNEY DARINEL MD ? Final Pathologic Diagnosis: ? Prostate, curettage: ? 1. ?Fibromuscular and glandular hyperplasia, consistent with benign ? prostatic hyperplasia. ? Document reviewed and electronically signed by: ? ROSA Waldemar VINAY MD ? Report ??Date: 06/07/2011 14:53 ? By the signature above, the attending physician certifies that he/she has ? personally conducted a gross and/or microscopic examination of the described ? specimens and rendered or confirmed the above diagnosis. ? Specimen(s) Received: ? Portion & F prostate ? Clinical History: ? BPH ? Gross Description: ? Received in formalin labelled Fidel, Joseulun J and prostate is a 4.0 x 4.0 x 1.5 cm aggregate of bowen-brown irregular soft tissue fragment. ??The tissue is coarsely nodular and there is a moderate amount of cautery. ??Entirely ? submitted in (A1)-(A5). (Dr. Lam)/mpl ? End of Report ? ABEL DELEON 06/01/2011 06/02/2011 13: 50 EDT us Bryce Quinones MD PATHOLOGY ORDERABLES Final Re sult ABEL DELEON [address] [place] [address] documented in this encounter Visit Diagnoses Not on filedocumented in this encounter Care Teams Drying Unit Felting Machine Operator Relationship Specialty Start Date End Date Unknown, Provider, PCP - General 06/05/11 06/05/11 documented as of this encounter
[2024-09-24 19:47] LABS: HCT 43.8 % (40.0-50.0); HGB 14.9 g/dL (13.5-17.5); MCH 30.3 pg (27.0-33.0); MCV 89 fL (80-95); MPV 11.8 fL (8.0-11.0); Platelet Count 157 10^3/uL (130-400); RBC 4.91 10^6/uL (4.36-5.78); RDW 13.2 % (11.8-14.1); WBC 10.54 10^3/uL (4.4-10.8)
[2024-09-24 20:05] LABS: ALT 29 U/L (16-63); AST 27 U/L (15-37); Albumin 4.1 g/dL (3.4-5.0); Alkaline Phosphatase 123 U/L (46-116); Anion Gap 8.7 mmol/L (3-11); BUN 27 mg/dL (7-18); Bilirubin, Total 1.36 mg/dL (0.2-1.0); CO2 27.3 mmol/L (21.0-32.0); CREATININE 1.8 mg/dL (0.70-1.30); Calcium 8.9 mg/dL (8.5-10.1); Chloride 107 mmol/L (98-107); Estimated GFR 37.82 (mL/min/1.73m2); Glucose 130 mg/dL (74-106); Potassium 4.6 mmol/L (3.5-5.1); Sodium 143 mmol/L (136-145); Total Protein 7.3 g/dL (6.4-8.2)
== END 2024-09-24 17:56 | disposition home or self-care (01) ==
LOC: NCHCN 17:55
PROVIDERS: PCP Family Medicine; Visit Provider Family Medicine
DX: I10 Essential (primary) hypertension (principal)
CPT/HCPCS: 80053; 85027